=== PATIENT | male | born 1955 | race Caucasian/White ===

== ENCOUNTER 2016-11-07 07:53 | Day surgery (SDC) | payer OTHER ==
[~2016-11-07] VITALS: Ht 180.3 cm; Wt 126.3 kg
[2016-11-07] VITALS (21 sets, daily range): BP systolic 103–122; BP diastolic 60–85; PULSE 61–84; RESP 14–21; TEMP 96.3–96.9; O2SAT 94–98; Ht 180.3 cm; Wt 126.3 kg
[~2016-11-07 07:53] MED LIST: LISI-127 PO; METO25TA6 PO; RIVA20TA PO
--- OUTSIDE RECORDS SUMMARY | 2016-11-07 08:01 | XMS REPORT ---
Author Author AFTAB PARKINSON [facility] Address [address] [id number] Phone [phone] Summary purpose CCDA Sent to [facility] Chief Complaint and Reason for Visit No authorized Reason for Visit (Admitting Diagnosis) is available for this visit. Problem list No authorized problems tracked for continuity of care are available for this visit. Encounters No authorized problems tracked for encounter diagnoses are available for this visit. Medications No home medications recorded for this patient visit Allergies, adverse reactions, alerts No allergy information is available for this patient. Immunizations No immunizations recorded for this patient visit Relevant diagnostic tests and/or laboratory data RESULTS CBC - 5 part diff :57:00 Result Normal Range Units WBC 5.18 4.75-11.75 x 103/uL Neut % 51.7 40-70 % Lymph % 35.9 18-50 % Rankin % 10.6 2-12 % Eos % 1.4 0-6 % Baso % 0.4 0-2 % Neut # 2.68 1.8-8.1 K/uL Lymph # 1.86 0.7-5.8 K/uL Rankin # 0.55 0.1-1.4 K/uL Eos # 0.07 0.0-0.7 K/uL Baso # 0.02 0.0-0.2 K/uL RBC 5.47 4.5-6.2 x 106/uL HGB 16.5 13.5-18.8 g/dl HCT 48.3 40-54 % MCV 88.3 80-100 FL MCH 30.2 25-35 pg MCHC 34.2 31-37 g/dl RDW 13.6 12.5-15.5 % Platelet 160 140-450 x 103/uL MPV 9.7 8.0-13.0 [place] Reference Lab Group :57:00 Result Normal Range Units Vitamin D (25-Hydroxy) 31 30-74 The desirable level of 25-Hydroxy Vitamin D Total(D2 + D3) is 30-74 ng/mL. A level consistently >200 is potentially toxic. Vitamin D, 25-Hydroxy performed at [facility] Reference Lab, [address] [place] [address] Dry House Attendant Mariah Wilde DO Vitamin D2(25-Hydroxy) < 7 Vitamin D3(25-Hydroxy) 31 Vitamin B12 586 213-816 Vitamin B12 performed at [facility] Reference Lab, [address] [place] [address] Dry House Attendant Yenni Cantu MD Iron Total 122 65-175 Folate 16.2 7.0-31.4 Folate performed at [facility] Reference Lab, [address] [place] [address] Dry House Attendant Mariah Wilde DO TIBC 278 260-445 % Saturation 44 11-46 % UIBC 156 126-382 Iron Profile performed at [facility] Reference Lab, [address] [place] [address] Dry House Attendant Yenni Cantu MD PTH H 96.7 6.6-88.9 PTH (Parathyroid Hormone) performed at [facility] Reference Lab, [address] [place] [address] Dry House Attendant Yenni Cantu MD History of procedures Procedure Code Code Type Description Date Performed Performing Physician 83584 CPT-4 COMPLETE CBC W/AUTO DIFF WBC 07-01-2014 [facility] JESS 06179 CPT-4 COMPREHEN METABOLIC PANEL 07-01-2014 [facility] JESS 56897 CPT-4 VITAMIN B-12 07-01-2014 [facility] JESS 29003 CPT-4 ASSAY OF FOLIC ACID SERUM 07-01-2014 [facility] JESS 42565 CPT-4 IRON BINDING TEST 07-01-2014 [facility] JESS 78852 CPT-4 ASSAY OF IRON 07-01-2014 [facility] JESS 10433 CPT-4 VITAMIN D 25 HYDROXY 07-01-2014 [facility] JESS 78782 CPT-4 ASSAY OF PARATHORMONE 07-01-2014 [facility] JESS 96830 CPT-4 ROUTINE VENIPUNCTURE 07-01-2014 [facility] JESS Functional status No functional or cognitive status observations are available for this visit. Vital signs No authorized vital signs are available for this visit. Social history No Social History or smoking status observations were recorded for this visit. ( Unknown if ever smoked.) Treatment Plan No treatment plan text is available for this visit. Hospital discharge instructions No discharge instruction text is available for this visit.
--- OUTSIDE RECORDS SUMMARY | 2016-11-07 08:01 | XMS REPORT ---
Author Author AFTAB PARKINSON [facility] AFTAB PARKINSON [facility] Address [address] [facility] [address] [place] [id number] Phone [phone] Summary purpose CCDA Sent to [facility] Chief Complaint and Reason for Visit No [...] data RESULTS CBC - 5 part diff [id number]:57:00 Result Normal Range Units WBC 5.18 4.75-11.75 x 103/uL Neut % 51.7 40-70 % Lymph % 35.9 18-50 % [place] % 10.6 2-12 % Eos % 1.4 0-6 % Baso % 0.4 0-2 % Neut # 2.68 1.8-8.1 K/uL Lymph # 1.86 0.7-5.8 K/uL [place] # 0.55 0.1-1.4 K/uL Eos # 0.07 0.0-0.7 K/uL Baso # 0.02 0.0-0.2 K/uL RBC 5.47 4.5-6.2 x 106/uL HGB 16.5 13.5-18.8 g/dl HCT 48.3 40-54 % MCV 88.3 80-100 FL MCH 30.2 25-35 pg MCHC 34.2 31-37 g/dl RDW 13.6 12.5-15.5 % Platelet 160 140-450 x 103/uL MPV 9.7 8.0-13.0 FL History of procedures No procedures recorded for this patient visit. Functional status No functional or cognitive status [...]
--- OUTSIDE RECORDS SUMMARY | 2016-11-07 08:01 | XMS REPORT ---
Author [facility] Address [address] [place], [place] [address] Phone [phone] Summary purpose CCDA Sent to [facility] Chief Complaint and Reason for Visit No authorized Reason for Visit (Admitting Diagnosis) is available for this visit. Problem list No authorized problems tracked for continuity of care are available for this visit. Encounters No authorized problems tracked for encounter diagnoses are available for this visit. Medications No medications recorded for this patient visit Allergies, adverse reactions, alerts Allergen Category Ingredient Status Reaction Severity Onset No known allergies No known allergies No known allergies Active Immunizations Status Date Not Given Reason Product Series # Effectiveness / Reaction Electronics Technician Lot / Expiration Given 11-20-2015 DIPH,PERTUSS(ACELL),TET VAC/PF 1 SANOFI-PASTEUR [id number] / 09-22-2017 Relevant diagnostic tests and/or laboratory data No authorized results are available for this patient visit History of procedures Procedure Code Code Type Description Date Performed Performing Physician 45839 CPT-4 TDAP VACCINE >7 IM 11-20-2015 AIYANA POPE 27197 CPT-4 IMMUNIZATION ADMIN 11-20-2015 STEPHANIE ELIZABETH 37619 CPT-4 REPAIR SUPERFICIAL WOUND(S) 11-20-2015 STEPHANIE ELIZABETH 96977 CPT-4 EMERGENCY DEPT VISIT 11-20-2015 STEPHANIE ELIZABETH Functional status Cognitive Status Finding Observation Time Level of Consciousne Alert 85-83-970861:45 Oriented to Person Yes 23-65-710800:[address] Yes 14-45-974767:45 Oriented to Time Yes 74-83-395825:45 Vital signs Type Value Date Respirations 20 27-19-960172:13 Pulse 74 39-50-168124:13 O2 Saturation 98% 09-05-608677:13 Systolic Blood Press 122mm/HG 61-81-336811:13 Diastolic Blood Pres 67mm/HG 95-17-834388:13 Temperature (Fahr) 98.1Degrees 88-23-805899:13 Height 71in 48-99-578501:28 Weight 273.5LB :28 Social history Type Value Smoking Status NEVER SMOKER Treatment Plan No treatment plan text is available for this visit. Hospital discharge instructions No discharge instruction text is available for this visit.
--- OUTSIDE RECORDS SUMMARY | 2016-11-07 08:01 | XMS REPORT | Continuity of Care Document ---
Author Author [facility]. Organization [facility]. Address Unknown Phone Unavailable Allergies Active Description Code Type Severity Reaction Onset Reported/Identified Relationship to Patient Clinical Status Yes No known allergies [id number] NK N/A N/A 11/20/2015 Confirmed or Verified Medications Problems Date Dx Coded Attending Type Code Diagnosis Diagnosed By 10/20/2014 W 278.00 10/20/2014 A 296.40 10/20/2014 W 298.9 10/20/2014 W 427.31 10/20/2014 W 780.57 10/20/2014 W V10.83 10/20/2014 W V45.86 10/20/2014 W V62.4 10/20/2014 W V67.3 10/20/2014 W 278.00 10/20/2014 A 296.40 10/20/2014 W 298.9 10/20/2014 W 427.31 10/20/2014 W 780.57 10/20/2014 W V10.83 10/20/2014 W V45.86 10/20/2014 W V62.4 10/20/2014 W V67.3 10/20/2014 W 278.00 10/20/2014 A 296.40 10/20/2014 W 298.9 10/20/2014 W 427.31 10/20/2014 W 780.57 10/20/2014 W V10.83 10/20/2014 W V45.86 10/20/2014 W V62.4 10/20/2014 W V67.3 12/02/2014 W 278.00 12/02/2014 A 296.40 12/02/2014 W 298.9 12/02/2014 W 427.31 12/02/2014 W 780.57 12/02/2014 W V10.83 12/02/2014 W V45.86 12/02/2014 W V62.4 12/02/2014 W V67.3 12/02/2014 W 278.00 12/02/2014 A 296.40 12/02/2014 W 298.9 12/02/2014 W 427.31 12/02/2014 W 780.57 12/02/2014 W V10.83 12/02/2014 W V45.86 12/02/2014 W V62.4 12/02/2014 W V67.3 12/10/2014 Roxane NASSAR, [place] W 278.00 12/10/2014 Roxane MD, [place] A 296.40 12/10/2014 Roxane MD, [place] W 298.9 12/10/2014 Roxane MD, [place] W 427.31 12/10/2014 Roxane MD, [place] W 780.57 12/10/2014 Roxane MD, [place] W V10.83 12/10/2014 Roxane MD, [place] W V45.86 12/10/2014 Roxane MD, [place] W V62.4 12/10/2014 Roxane NASSAR, [place] W V67.3 12/12/2014 Roxane MD, [place] W 278.00 12/12/2014 Roxane MD, [place] A 296.40 12/12/2014 Roxane NASSAR, [place] W 298.9 12/12/2014 Roxane MD, [place] W 427.31 12/12/2014 Roxane MD, [place] W 780.57 12/12/2014 Roxane NASSAR, [place] W V10.83 12/12/2014 Roxane NASSAR, [place] W V45.86 12/12/2014 Roxane MD, [place] W V62.4 12/12/2014 Roxane NASSAR, [place] W V67.3 12/22/2014 Roxane NASSAR, [place] W 278.00 12/22/2014 Roxane MD, [place] A 296.40 12/22/2014 Roxane NASSAR, [place] W 298.9 12/22/2014 Roxane NASSAR, [place] W 427.31 12/22/2014 Roxane NASSAR, [place] W 780.57 12/22/2014 Roxane NASSAR, [place] W V10.83 12/22/2014 Roxane NASSAR, [place] W V45.86 12/22/2014 Roxane NASSAR, [place] W V62.4 12/22/2014 Roxane NASSAR, [place] W V67.3 12/23/2014 Roxane NASSAR, [place] W 278.00 12/23/2014 Roxane MD, [place] A 296.40 12/23/2014 Roxane NASSAR, [place] W 298.9 12/23/2014 Roxane NASSAR, [place] W 427.31 12/23/2014 Roxane NASSAR, [place] W 780.57 12/23/2014 Roxane NASSAR, [place] W V10.83 12/23/2014 Roxane NASSAR, [place] W V45.86 12/23/2014 Roxane NASSAR, [place] W V62.4 12/23/2014 Roxane NASSAR, [place] W V67.3 12/25/2014 Roxane NASSAR, [place] W 278.00 12/25/2014 Roxane NSASAR, [place] A 296.40 12/25/2014 Roxane NASSAR, [place] W 298.9 12/25/2014 Roxane NASSAR, [place] W 427.31 12/25/2014 Roxane NASSAR, [place] W 780.57 12/25/2014 Roxane NASSAR, [place] W V10.83 12/25/2014 Roxane NASSAR, [place] W V45.86 12/25/2014 Roxane NASSAR, [place] W V62.4 12/25/2014 Roxane NASSAR, [place] W V67.3 01/05/2015 Roxane NASSAR, [place] W 278.00 01/05/2015 Roxane NASSAR, [place] A 296.40 01/05/2015 Roxane NASSAR, [place] W 298.9 01/05/2015 Roxane NASSAR, [place] W 427.31 01/05/2015 Roxane MD, [place] W 780.57 01/05/2015 Roxane MD, [place] W V10.83 01/05/2015 Roxane MD, [place] W V45.86 01/05/2015 Roxane MD, [place] W V62.4 01/05/2015 Roxane MD, [place] W V67.3 01/06/2015 Roxane MD, [place] W 278.00 01/06/2015 Roxane MD, [place] A 296.40 01/06/2015 Roxane MD, [place] W 298.9 01/06/2015 Roxane MD, [place] W 427.31 01/06/2015 Roxane MD, [place] W 780.57 01/06/2015 Roxane MD, [place] W V10.83 01/06/2015 Roxane MD, [place] W V45.86 01/06/2015 Roxane MD, [place] W V62.4 01/06/2015 Roxane NASSAR, [place] W V67.3 01/08/2015 Roxane MD, [place] W 278.00 01/08/2015 Roxane MD, [place] A 296.40 01/08/2015 Roxane NASSAR, [place] W 298.9 01/08/2015 Roxane NASSAR, [place] W 427.31 01/08/2015 Roxane MD, [place] W 780.57 01/08/2015 Roxane MD, [place] W V10.83 01/08/2015 Roxane NASSAR, [place] W V45.86 01/08/2015 Roxane NASSAR, [place] W V62.4 01/08/2015 Roxane NASSAR, [place] W V67.3 01/19/2015 Roxane NASSAR, [place] W 278.00 01/19/2015 Roxane NASSAR, [place] A 296.40 01/19/2015 Roxane NASSAR, Clairet W 298.9 01/19/2015 Roxane NASSAR, Clare W 427.31 01/19/2015 Roxane NASSAR, Clare W 780.57 01/19/2015 Roxane NASSAR, [place] W V10.83 01/19/2015 Roxane NASSAR, Clare W V45.86 01/19/2015 Roxane NASSAR, Clare W V62.4 01/19/2015 Roxane NASSAR, Clare W V67.3 09/22/2016 KARISHMA TENORIO I48.2 CHRONIC ATRIAL FIBRILLATION 09/24/2016 KARISHMA TENORIO I48.2 CHRONIC ATRIAL FIBRILLATION 10/09/2016 KARISHMA TENORIO I48.2 CHRONIC ATRIAL FIBRILLATION Procedures Code [place] [address] RPR F/E/E/N/L/M 2.6-5.0 CM STEPHANIE ELIZABETH MD 11/20/2015 71460 IMMUNIZATION ADMIN STEPHANIE ELIZABETH MD 11/20/2015 96904 TDAP VACCINE 7 YRS/> AIYANA AVILA 11/20/2015 39012 EMERGENCY DEPT VISIT STEPHANIE ELIZABETH MD 11/20/2015 Results Test Result Range Comprehensive Metabolic Panel - 07/01/14 10:19 Sodium 141 MMOLL 135-145 Potassium 4.4 MMOLL 3.5-5.1 Chloride 106 MMOLL 98-107 CO2 31.4 MMOLL 21.0-32.0 Anion GAP 3.6 MMOLL 3.0-25.0 Glucose 87 MG/DL 74-106 BUN 18 MG/DL 7-18 Creatinine 0.69 MG/DL 0.2-1.3 EGFR > 60 MLMIN > 60 Calcium 9.1 MG/DL 8.4-10.1 T. Protein 6.5 G/DL 6.4-8.2 Albumin 3.6 G/DL 3.4-5.0 AST 22 U/L 15-37 Alk Phos 76 U/L 43-119 ALT 36 U/L 12-78 T Bili 0.9 MG/DL 0.00-1.00 COMPLETE BLOOD COUNT - 07/01/14 10:46 Baso # 0.02 K/ul 0.0-0.2 Baso % 0.4 % 0-2 Eos # 0.07 K/ul 0.0-0.7 Eos % 1.4 % 0-6 HCT 48.3 % 40-54 HGB 16.5 G/DL 13.5-18.8 Lymph # 1.86 K/ul 0.7-5.8 Lymph % 35.9 % 18-50 MCH 30.2 PG 25-35 MCHC 34.2 G/DL 31-37 MCV 88.3 FL 80-100 [place] # 0.55 K/ul 0.1-1.4 [place] % 10.6 % 2-12 MPV 9.7 FL 8.0-13.0 Platelet 160 10^3u 140-450 RBC 5.47 10^6u 4.5-6.2 RDW 13.6 % 12.5-15.5 Neut # 2.68 K/ul 1.8-8.1 Neut % 51.7 % 40-70 WBC 5.18 10^3u 4.75-11.75 Vitamin B12 - 07/03/14 07:32 Vitamin B12 586 pg/mL 213-816 Folic Acid (Folate) - 07/03/14 07:32 Folic Acid (Folate) 16.2 ng/mL 7.0-31.4 Iron/TIBC Profile - 07/03/14 07:32 Iron 122 ug/dL 65-175 % Saturation 44 % 11-46 Iron Binding Capacity 278 ug/dL 260-445 UIBC 156 ug/dl 126-382 PTH - 07/03/14 07:32 PTH 96.7 pg/mL 6.6-88.9 Vitamin D (25-Hydroxy) - 07/04/14 08:37 Vitamin D2 (25-Hydroxy) < 7 ng/mL Vitamin D3 (25-Hydroxy) 31 ng/mL Vitamin D (25-Hydroxy) 31 ng/mL 30-74 COMPLETE BLOOD COUNT (CBC) - 09/14/16 16:22 WHITE BLOOD COUNT 4.6 K/mm3 4.8-10.8 RED BLOOD COUNT 5.28 M/mm3 4.20-5.60 HEMOGLOBIN 15.3 g/dl 13.5-18.0 HEMATOCRIT 46.2 % 42.0-52.0 MEAN CORPUSCULAR VOLUME 88 fl 80.0-100.0 MEAN CORPUSCULAR HEMOGLOBIN 29 pg 27.0- 31.0 MEAN CORPUSCULAR HGB CONC 33 g/dl 33.0- 37.0 PLATELET COUNT 192 K/mm3 130-400 MEAN PLATELET VOLUME 10.5 fl 7.4-10.4 REDCELL DISTRIBUTION WIDTH-CV 12.5 % 11.5 -14.5 COMPREHENSIVE METABOLIC PANEL - 09/14/16 16:22 SODIUM 139 mmol/L 137-145 POTASSIUM 4.1 mmol/L 3.4-5.0 CHLORIDE 103 mmol/L 98-107 CARBON DIOXIDE 25 mmol/L 22-30 ANION GAP 11 mmol/L 7-16 BLOOD UREA NITROGEN 19 mg/dL 9-20 GLUCOSE 75 mg/dL 74-106 CALCIUM 9.4 mg/dL 8.4-10.2 BILIRUBIN,TOTAL 1.0 mg/dL 0.0-1.0 ALKALINE PHOSPHATASE 62 U/L 50-136 ASPARTATE AMINO TRANSFERASE 46 U/L 15-37 ALANINE AMINOTRANSFERASE 43 U/L 21-72 TOTAL PROTEIN 6.9 gm/dL 6.4-8.2 ALBUMIN 3.8 gm/dL 3.5-5.0 CREATININE, serum 0.67 mg/dL 0.66-1.25 ADJUSTED CALCIUM 9.6 mg/dL 8.4-10.2 eGFR 145 eGFR non 120 TROPONIN-I - 09/14/16 16:22 TROPONIN I < 0.012 ng/mL 0.000-0.034 CKMB-SO - 09/14/16 16:22 CKMB-SO 3.6 ng/mL 0.0-7.2 Encounters ACCT No. Visit Date/Time Discharge Status Pt. Type Provider Facility Loc./Unit Complaint [id number] 12/29/2014 15:16:00 2014 23:59:59 [facility] Outpatient Clare Betts MD [facility] [id number] 12/15/2014 17:20:00 2014 23:59:59 [facility] Outpatient Clare Betts MD [facility] [id number] 12/02/2014 16:02:00 2014 23:59:59 CH[facility]STIANO Outpatient Clare Betts MD [facility]. [facility] [id number] 09/14/2016 16:03:00 ACT Outpatient KARISHMA TENORIO [facility]. [facility] [id number] 12/17/2013 09:45:00 Document Registration [id number] 11/12/2013 09:34:00 Document Registration [id number] 10/08/2013 08:50:00 Document Registration
--- NOTE | 2016-11-07 08:07 | NUR ---
Admit Pt admitted at this time via ambulatory status. VS stable on RA. Call light w/in reach, side rails up X2, bed alarm on.
[2016-11-07] MEDS ORDERED: VITA400C19 PO (08:32)
[2016-11-07] MEDS ORDERED: LACT1CAP72 PO (08:32)
[2016-11-07] MEDS ORDERED: SUPER B PO (08:32)
[2016-11-07] MEDS ORDERED: UBID100C29 PO (08:32)
[2016-11-07 08:41] LABS: BASOPHILS % (AUTO) 0.4 % (0-2); EOSINOPHILS # (AUTO) 0.1 T/MM3 (0-0.5); EOSINOPHILS % (AUTO) 1.3 % (0-4); HCT - HEMATOCRIT 45.3 % (41-53); HGB - HEMOGLOBIN 15.6 GM/DL (13.5-17.5); IMMATURE GRANULOCYTE # (AUTO) 0.01 T/MM3 (0.00-0.03); IMMATURE GRANULOCYTE % (AUTO) 0.2 % (0.0-0.5); LYMPHOCYTES # (AUTO) 1.8 T/MM3 (1-4.8); LYMPHOCYTES % (AUTO) 33.6 % (23-45); MEAN CORPUSCULAR HGB 29.8 UUG (26-34); MEAN CORPUSCULAR HGB CONC(MCHC 34.4 GM/DL (31-37); MEAN CORPUSCULAR VOLUME 86.5 UM3 (80-100); MEAN PLATELET VOLUME 10.5 UM3 (9.4-12.4); MONOCYTES # (AUTO) 0.5 T/MM3 (0-0.8); MONOCYTES % (AUTO) 8.8 % (0-9.0); NEUTROPHILS % (AUTO) 55.7 % (33-66); RED BLOOD COUNT 5.24 M/MM3 (4.50-5.90); WBC - WHITE BLOOD COUNT 5.4 T/MM3 (4.5-11.0)
[2016-11-07 08:52] LABS: ALBUMIN/GLOBULIN RATIO 1.5 RATIO (1.1-2.2); ALKALINE PHOSPHATASE 57 U/L (38-126); ALT (SGPT) 41 U/L (21-72); ANION GAP 11 MEQ/L (5-15); AST (SGOT) 31 U/L (17-59); BUN/CREATININE RATIO 28 RATIO (6-26); CALCIUM 9.6 MG/DL (8.4-10.2); CHLORIDE 110 MEQ/L (98-107); CO2 - CARBON DIOXIDE 25 MEQ/L (22-30); CREATININE 0.6 MG/DL (0.8-1.5); GLOMERULAR FILTRATION RATE 136; GLUCOSE 102 MG/DL (75-110); MAGNESIUM 2.1 MG/DL (1.6-2.3); POTASSIUM 4.3 MEQ/L (3.6-5); SODIUM 146 MEQ/L (134-144); TOTAL PROTEIN 6.6 G/DL (6.3-8.2)
[2016-11-07 09:21] LABS: THYROID STIM HORMONE-TSH 1.39 MIU/L (0.47-4.68)
--- NOTE | 2016-11-07 10:09 | HPPDOC ---
SUELLEN SHABAZZ 11/07/16 1007: HPI - Adult Date DATE: 11/07/16 TIME: 09:59 General Date of Admission Date of Admission: November 07, 2016 at 07:53 Chief Complaint: palpitations History of Present Illness Jean is a 61 year old male who is well known to Dr. Velásquez with a history of paroxysmal Atrial fibrillation, systolic heart failure and mixed HLD who is being admitted to observation on the Surgical unit for DCCV under conscious sedation and antiarrhythmic therapy on Sotalol if successful. He will be monitored on telemetry overnight with repeat EKG in the morning. Past Medical History Past Medical History Metabolic: cancer (skin-nose&ear) Cardiac: A-fib Respiratory: other (TIERNEY) Musculoskeletal: osteoarthritis Psychological: bipolar Surgical History General: tonsils Joint: shoulder (rotator cuff) Current Medications Home Meds Active Scripts Amiodarone HCl (Pacerone) 200 Mg Tablet, 200 MG PO DAILY for 30 Days, #30 TAB 11 Refills Prov:SUELLEN SHABAZZ 11/08/16 Rivaroxaban (Xarelto) 20 Mg Tablet, 20 MG PO WS for 30 Days, #30 TAB 11 Refills Prov:SUELLEN SHABAZZ PRODUCTION MANAGER 11/08/16 Reported Medications Lactobacillus Combo No.11 (Probiotic) 1 Each Cap.sprink, 1 CAP PO DAILY 11/07/16 Vitamin E (Dl,Tocopheryl Acet) (Vitamin E) 400 Unit Capsule, 400 UNIT PO DAILY, CAP 11/07/16 Ubidecarenone (Co Q-10) 100 Mg Capsule, 1 CAP PO DAILY 11/07/16 [super b] No Conflict Check, 1 TAB PO DAILY 11/07/16 Discontinued Reported Medications Rivaroxaban (Xarelto) 20 Mg Tablet, 1 TAB PO DAILY, #30 TAB 11 Refills 11/06/16 Metoprolol Tartrate (Metoprolol Tartrate) 25 Mg Tablet, 0.5 TAB PO BID, #30 11/06/16 Allergies: Coded Allergies: NKDA (Verified Allergy, Unknown, 11/07/16) Family History FOUND: other (PPM-mother) Vaccines No Social History Smoking Status: Never smoker Does patient use chewing tobac: No Second Hand Exposure: No Substance Use Type: does not use Alcohol Intake: occasionally Marital Status: Single Current Occupational Status: employed Advance Directives: No DPOA for Healthcare Only Review of Systems Constitutional: DENIES: chills, dizziness, fever, weakness Eyes Vision: DENIES: vision changes ENMT Hearing: DENIES: tinnitus Balance: DENIES: vertigo Sinuses: NOT FOUND: rhinorrhea Mouth/Throat: DENIES: sore throat Cardiovascular DENIES: chest pain, dyspnea on exertion, murmur, orthopnea Rhythm/Rate: DENIES: irregular beat, palpitations Vascular: DENIES: pedal edema Pulmonary Respiratory: DENIES: cough, sputum GI Upper Abdomen: DENIES: nausea, vomiting Lower Abdomen: DENIES: diarrhea General: DENIES: dysuria Musculoskeletal General: DENIES: weakness Integumentary Skin: DENIES: rash, sores Neurological General: DENIES: headache, numbness, seizures, syncope, weakness Hematologic/Lymphatic easy bruising All Other Systems All Other Systems: Reviewed (remainder of 10-point ROS Neg.) Physical Exam General General Nourishment: well nourished, well developed, apparent age Vital Signs Vital Signs Date Time Temp Pulse Resp B/P Pulse Ox O2 Delivery O2 Flow Rate FiO2 11/07/16 08:39 67 16 11/07/16 08:34 96.9 122/77 98 Room Air Height (Feet): 5 Height (Inches): 11.00 Telemetry Rhythm: Atrial Fibrillation ENMT Brief: FOUND: mucosa moist Neck Brief: NOT FOUND: JVD, carotid bruits Respiratory Brief: FOUND: clear all perez, equal bilaterally, NOT FOUND: rales , wheezes Cardiovascular (brief) Cardiac Brief: NOT FOUND: click, gallop, murmur, regular rate, regular rhythm Abdomen (brief) Abdominal Brief: FOUND: BS normo active x4, soft, NOT FOUND: tender Integumentary (brief) Integumentary Brief: FOUND: dry, pink, warm Neurologic RN Documented GCS Eye Opening: Verbal: Motor: Total: Psychiatric (brief) FOUND: alert, attentive, oriented Laboratory Laboratory Tests Test 11/07/16 08:30 White Blood Count 5.4T/MM3 Red Blood Count 5.24M/MM3 Hemoglobin 15.6GM/DL Hematocrit 45.3% Mean Corpuscular Volume 86.5UM3 Mean Corpuscular Hemoglobin 29.8UUG Mean Corpuscular Hemoglobin Concent 34.4GM/DL RDW Standard Deviation 43.7FL Platelet Count 178T/MM3 Mean Platelet Volume 10.5UM3 Immature Granulocyte % (Auto) 0.2% Neutrophils (%) (Auto) 55.7% Lymphocytes (%) (Auto) 33.6% Monocytes (%) (Auto) 8.8% Eosinophils (%) (Auto) 1.3% Basophils (%) (Auto) 0.4% Absolute Immature Granulocyte (auto 0.01T/MM3 Absolute Neutrophils (auto) 3.0T/MM3 Absolute Lymphocytes (auto) 1.8T/MM3 Absolute Monocytes (auto) 0.5T/MM3 Absolute Eosinophils (auto) 0.1T/MM3 Absolute Basophils (auto) 0.0T/MM3 Turbidity < 20 Sodium Level 146MEQ/L Potassium Level 4.3MEQ/L Chloride Level 110MEQ/L Carbon Dioxide Level 25MEQ/L Anion Gap 11MEQ/L Blood Urea Nitrogen 17.0MG/DL Creatinine 0.6MG/DL Glomerular Filtration Rate Calc 136 BUN/Creatinine Ratio 28RATIO Glucose Level 102MG/DL Calculated Osmolality 283MOSM/KG Calcium Level 9.6MG/DL Magnesium Level 2.1MG/DL Total Bilirubin 1.30MG/DL Icterus Index < 2 Aspartate Amino Transf (AST/SGOT) 31U/L Alanine Aminotransferase (ALT/SGPT) 41U/L Alkaline Phosphatase 57U/L Total Protein 6.6G/DL Albumin 4.0G/DL Globulin 2.6G/DL Albumin/Globulin Ratio 1.5RATIO Thyroid Stimulating Hormone (TSH) 1.39MIU/L Chemistry Specimen Hemolysis 18 Laboratory Tests Test 11/07/16 08:30 White Blood Count 5.4T/MM3 Red Blood Count 5.24M/MM3 Hemoglobin 15.6GM/DL Hematocrit 45.3% Mean Corpuscular Volume 86.5UM3 Mean Corpuscular Hemoglobin 29.8UUG Mean Corpuscular Hemoglobin Concent 34.4GM/DL RDW Standard Deviation 43.7FL Platelet Count 178T/MM3 Mean Platelet Volume 10.5UM3 Immature Granulocyte % (Auto) 0.2% Neutrophils (%) (Auto) 55.7% Lymphocytes (%) (Auto) 33.6% Monocytes (%) (Auto) 8.8% Eosinophils (%) (Auto) 1.3% Basophils (%) (Auto) 0.4% Absolute Immature Granulocyte (auto 0.01T/MM3 Absolute Neutrophils (auto) 3.0T/MM3 Absolute Lymphocytes (auto) 1.8T/MM3 Absolute Monocytes (auto) 0.5T/MM3 Absolute Eosinophils (auto) 0.1T/MM3 Absolute Basophils (auto) 0.0T/MM3 Turbidity < 20 Sodium Level 146MEQ/L Potassium Level 4.3MEQ/L Chloride Level 110MEQ/L Carbon Dioxide Level 25MEQ/L Anion Gap 11MEQ/L Blood Urea Nitrogen 17.0MG/DL Creatinine 0.6MG/DL Glomerular Filtration Rate Calc 136 BUN/Creatinine Ratio 28RATIO Glucose Level 102MG/DL Calculated Osmolality 283MOSM/KG Calcium Level 9.6MG/DL Magnesium Level 2.1MG/DL Total Bilirubin 1.30MG/DL Icterus Index < 2 Aspartate Amino Transf (AST/SGOT) 31U/L Alanine Aminotransferase (ALT/SGPT) 41U/L Alkaline Phosphatase 57U/L Total Protein 6.6G/DL Albumin 4.0G/DL Globulin 2.6G/DL Albumin/Globulin Ratio 1.5RATIO Thyroid Stimulating Hormone (TSH) 1.39MIU/L Chemistry Specimen Hemolysis 18 EKG atrial fibrillation Assessment & Plan Problems: (1) Paroxysmal atrial fibrillation Status: Chronic Assessment & Plan: Admitted to observation on the Surgical unit for DCCV under conscious sedation and antiarrhythmic therapy on Sotalol if successful. (2) Mixed hyperlipidemia Status: Chronic Assessment & Plan: PCP manages Plan/Intensity of Service admitted to observation on the Surgical unit for DCCV under conscious sedation and antiarrhythmic therapy on Sotalol if successful. DVT Prophylaxis: Xarelto Code Status Full Code Hospital Course Summary Disclaimer The hospital course summary below is not to be considered part of the above Progress Note. AKISER PALMA MD 11/10/16 1548: Past Medical History Current Medications Home Meds Active Scripts Amiodarone HCl (Pacerone) 200 Mg Tablet, 200 MG PO DAILY for 30 Days, #30 TAB 11 Refills Prov:SUELLEN SHABAZZ APRN 11/08/16 Rivaroxaban (Xarelto) 20 Mg Tablet, 20 MG PO WS for 30 Days, #30 TAB 11 Refills Prov:SUELLEN SHABAZZ APRN 11/08/16 Reported Medications Lactobacillus Combo No.11 (Probiotic) 1 Each Cap.sprink, 1 CAP PO DAILY 5/16/17 Vitamin E (Dl,Tocopheryl Acet) (Vitamin E) 400 Unit Capsule, 400 UNIT PO DAILY, CAP 11/07/16 Ubidecarenone (Co Q-10) 100 Mg Capsule, 1 CAP PO DAILY 11/07/16 [super b] No Conflict Check, 1 TAB PO DAILY 11/07/16 Discontinued Reported Medications Rivaroxaban (Xarelto) 20 Mg Tablet, 1 TAB PO DAILY, #30 TAB 11 Refills 11/06/16 Metoprolol Tartrate (Metoprolol Tartrate) 25 Mg Tablet, 0.5 TAB PO BID, #30 11/06/16 Allergies: Coded Allergies: NKDA (Verified Allergy, Unknown, 11/07/16) Assessment & Plan Hospital Course Summary Hospital Course Summary After examining the patient I agree with the above assessment. I am involved in the formulation of the patient's plan of care. SUELLEN SHABAZZ APRN November 07, 2016 10:07 KAISER PALMA MD November 10, 2016 15:48
--- NOTE | 2016-11-07 11:32 | NUR ---
CM CM IN TO VISIT PATIENT, HE IS A&O. NO FAMILY PRESENT. PATIENT PLANS TO DISCHARGE HOME, DENIES DISCHARGE NEEDS. CM CONTACT INFORMATION PROVIDED. PATIENT ALSO REQUESTED DPOA AND LIVING WILL INFORMATION, THIS WAS GIVEN AND DISCUSSED. Addendum: 11/07/16 at 1133 by EMA BLUM RN Amended: Links added.
[2016-11-07] MEDS ORDERED: AMIODARONE 150 MG in NORMAL SALINE 100 ML IV ONE (14:00)
[2016-11-07] MEDS ORDERED: AMIODARONE 900 MG in NORMAL SALINE 500 ML IV SCH ×2 (14:00→20:00)
[2016-11-07] MEDS ORDERED: MIDAZOLAM 2mg/2ml INJECTION IV ONE (16:33)
[2016-11-07] MEDS ORDERED: FENTANYL 100mcg/2ml INJECTION IV ONE (16:33)
[2016-11-07] MEDS ORDERED: SALINE FLUSH 10ml SYRINGE IVF ONE (16:33)
[2016-11-07] MEDS ORDERED: RIVAROXABAN 20 MG PO SCH (17:30)
--- NOTE | 2016-11-07 18:45 | NUR ---
Summary VS stable on RA. Pt denies n/v and pain. Pt up with standby assistance. Side rails up X2, call light w/in reach, bed alarm on.
[2016-11-07] MEDS ORDERED: ACETAMINOPHEN 500 MG TABLET PO PRN (21:45)
[2016-11-08 04:05] VITALS: BP 130/87; PULSE 67; RESP 16; TEMP 96.1; O2SAT 97
--- NOTE | 2016-11-08 04:31 | NUR ---
SHIFT SUMMARY PT IS ALERT AND ORIENTED X3,VITAL SIGNS ARE STABLE ON ROOM AIR. DENIES C/P,N/V AND SOA. PT HAS STATED THAT HE HAS HAD A HEADACHE OFF AND ON THROUGH THE NIGHT. TYLENOL AND A COOL COMPRESS GIVEN. PT HAS HAD ADEQUATE URINE OUTPUT WITH A STRONG SMELL. PT HAS BEEN UP ADLIB IN HIS ROOM, CALLING FOR ASSISTANCE IF NECESSARY. WILL CONTINUE TO MONITOR.
[2016-11-08 04:57] LABS: ANION GAP 10 MEQ/L (5-15); BUN/CREATININE RATIO 27 RATIO (6-26); CALCIUM 9.5 MG/DL (8.4-10.2); CHLORIDE 106 MEQ/L (98-107); CO2 - CARBON DIOXIDE 27 MEQ/L (22-30); CREATININE 0.7 MG/DL (0.8-1.5); GLOMERULAR FILTRATION RATE 114; GLUCOSE 94 MG/DL (75-110); MAGNESIUM 2.1 MG/DL (1.6-2.3); POTASSIUM 4.4 MEQ/L (3.6-5); SODIUM 143 MEQ/L (134-144)
[2016-11-08 07:21] VITALS: PULSE 57
[2016-11-08 07:23] VITALS: BP 118/75; PULSE 56; RESP 18; TEMP 95.9; O2SAT 96
--- NOTE | 2016-11-08 07:39 | DC CARDIOF ---
DATE OF PROCEDURE November 07, 2016 The patient is a 61-year-old gentleman with atrial fibrillation on chronic anticoagulation and was referred for DC cardioversion. Informed consent was obtained after explaining the procedure and the potential risks to the patient who agreed to proceed with the procedure. PROCEDURE 1. DC cardioversion of atrial fibrillation to sinus rhythm. TECHNIQUE Conscious sedation was performed using Versed and fentanyl. Anterior and lateral Zoll pads were applied. 360 joules of energy was delivered in synchronized manner and patient converted from atrial fibrillation to sinus rhythm. However, after a minute in sinus rhythm he reverted back to atrial fibrillation. Repeat cardioversion was performed again at previous settings and the patient failed to convert to sinus this time. Again, repeat cardioversion was performed for the third time and patient converted from atrial fibrillation into sinus rhythm at the previous settings. He tolerated the procedure well with no complications. IMPRESSION 1. Successful DC cardioversion of atrial fibrillation to sinus rhythm. PLAN Will start him on antiarrhythmics to maintain sinus and keep him on anticoagulation. IDRIS
[2016-11-08] MEDS ORDERED: VITAMIN E 400 UNIT PO SCH (09:00)
[2016-11-08] MEDS ORDERED: COENZYME Q10 200 MG PO SCH (09:00)
[2016-11-08] MEDS ORDERED: RIVA20TA PO (11:14)
[2016-11-08] MEDS ORDERED: AMIO200T7 PO (11:14)
[2016-11-08] MEDS ORDERED: AMIODARONE 200 MG TABLET PO SCH (11:15)
[2016-11-08 12:29] VITALS: BP 138/69; PULSE 66; RESP 20; TEMP 96.8; O2SAT 96
--- NOTE | 2016-11-08 13:20 | NUR ---
DISCHARGE DISCHARGE INSTRUCTIONS EXPLAINED TO PATIENT. PACKET SENT WITH PATIENT. MEDS PROVIDED TO PATIENT. PT DENIED CP TODAY. PT DID NOT HAVE PAIN OR SOA. UP AD CHICHO. A&OX3. IVL DC'D. PT AMBULATED WITH STAFF TO THE FRONT ENTRANCE. SCRIPTS X2 PROVIDED TO PATIENT.
--- OUTSIDE RECORDS SUMMARY | 2016-11-09 10:22 | XMS REPORT | Continuity of Care Document ---
Author Author [facility] Organization [facility] Address Unknown Phone Unavailable Support Name Relationship Address Phone KAISER BARROS MD Caregiver [address] [place] [address] [place] [address] Unavailable KAISER BARROS MD Caregiver [address] [place] [address] [place] [address] Unavailable YESIKA BAILEY Caregiver [address] [place] [address] Unavailable AGUILA HWANG Next Of Kin [address] [place] [address] Insurance Providers Guarantor Gaviota Hwang Address [address] [facility] [address] [place] [address] Email [email or web address] Payer [employer] Policy Number [id number] Subscriber's Name HwangGaviota Andry Relationship 18 Self Group Number [id number] Advance Directives Directive Response Recorded Date/Time Ordered Resuscitation Status Full Code 11/07/16 6:45am Resuscitation Documents on File No 11/07/16 8:17am DPOA for Healthcare Only No 11/07/16 10:09am Living Will No 11/07/16 8:17am Advance Directive Consult Information Given 11/07/16 11:33am Problems Active Problems Medical Problem Onset Date Status Mixed hyperlipidemia Unknown Chronic Paroxysmal atrial fibrillation Unknown Chronic Medications Current Home Medications Medication Dose Units Route Directions Days Qty Instructions Start Date Amiodarone Hcl (Pacerone) 200 Mg Tablet 200 Mg Oral Daily 30 Days 30 Tablet 11/08/16 Lactobacillus Combo No.11 (Probiotic) 1 Each Cap.sprink 1 Cap Oral Daily 11/07/16 Rivaroxaban (Xarelto) 20 Mg Tablet 20 Mg Oral Give With Supper 30 Days 30 Tablet 11/08/16 Super B 1 Tab Oral Daily 11/07/16 Ubidecarenone (Co Q-10) 100 Mg Capsule 1 Cap Oral Daily 11/07/16 Vitamin E (Dl,Tocopheryl Acet) (Vitamin E) 400 Unit Capsule 400 Unit Oral Daily 11/07/16 Past Home Medications Medication Directions Ordered Status Metoprolol Tartrate 25 Mg Tablet, 0.5 Tab Oral Twice A Day 11/06/16 Discontinued Rivaroxaban (Xarelto) 20 Mg Tablet, 1 Tab Oral Daily 11/06/16 Discontinued Social History Social History Problem Response Recorded Date/Time Onset Date Status Reason for Hospitalization antiarrhythmic therapy 11/08/2016 11:31am Not Applicable Not Applicable Chewing Tobacco Status No 04/25/2013 9:57am Not Applicable Not Applicable Hx Substance Use No 11/06/2016 2:10pm Not Applicable Not Applicable Hx Alcohol Use N VERY RARELY 11/06/2016 2:10pm Not Applicable Not Applicable Has the pt used tobacco in the last 12 months Yes 11/07/2016 8:19am Not Applicable Not Applicable Query Response Start Date Stop Date Smoking Status Never smoker Hospital Discharge Instructions Instructions: Care Instructions: I was in the hospital because (patient own words): "I have a heart arrhythmia and Dr. Barros wants to do a cardioversion" Discharge Diet: Resume heart healthy diet Discharge Activity: May resume usual activity as tolerated. Follow Up Appointments: Follow up with Dr. Barros on: 11/17/16 at 10:40 Pending Lab / Results: No Pending Lab Patient Instructions: New prescriptions:Amiodarone 200mg by mouth daily. Xarelto 20mg by mouth daily. DO NOT STOP THESE MEDICATIONS WITHOUT AN ORDER FROM DR. BARROS Expected Signs/Symptoms: N/A Notify Physician If: Chest pain or difficulty breathing. During Business Hours:: Call Dr. Barros's office at [phone]. After Business Hours:: Please call [phone] and have the featheredge machine operator page the physician. Pain Management/Treatment: N/A Wound/Incision Care: N/A Condition at time of discharge: Good Plan of Care Discharge Date 11/08/16 1:20pm Disposition 01 DISCHARGED HOME, SELF-CARE Instructions/Education Provided Cardioversion (DC) Prescriptions See Medication Section Care Plan and Goals See Discharge Instructions Section Functional Status Query Response Date Recorded Mobility Status Ambulatory November 07, 2016 8:35am Assistive Devices None November 07, 2016 8:35am Activity Limitations None November 07, 2016 8:35am Feeding Ability Independent November 07, 2016 8:35am Toileting Ability Independent November 07, 2016 8:35am Grooming Ability Independent November 07, 2016 8:35am Dressing Ability Independent November 07, 2016 8:35am Driving Ability Independent November 07, 2016 8:35am Housework Ability Independent November 07, 2016 8:35am Meal Preparation Ability Independent November 07, 2016 8:35am Stair Climbing Ability Independent November 07, 2016 8:35am Ability to complete ADL's impeded by No change November 07, 2016 8:35am Cognitive/Perceptual Impairments Impaired vision Impaired hearing November 07, 2016 8:35am Visual Assistive Devices Glasses With patient November 07, 2016 8:35am Hearing Assistive Devices With patient November 07, 2016 8:35am Allergies, Adverse Reactions, Alerts Allergen Type Severity Reaction Status Last Updated NKDA Allergy Unknown Active 11/07/16 Immunizations Query Response on File Recorded Date/Time Hx Influenza Vaccination No 11/07/16 8:19am Hx Pneumococcal Vaccination No 11/07/16 8:19am Hx Influenza Vaccination No 11/07/16 8:19am Vital Signs Acute Vital Signs Vital Response Date/Time Temperature (Fahrenheit) 96.8 deg F (96.8 - 99.1) 11/08/2016 12:29pm Temperature (Calculated Celsius) 36.98333 degrees C (36.0 - 37.3) 11/08/2016 12:29pm Temperature Source Oral 11/08/2016 12:29pm Pulse Rate (adult) 66 bpm (60 - 100) 11/08/2016 12:29pm Respiratory Rate 20 breaths/min (10 - 20) 11/08/2016 12:29pm O2 Sat by Pulse Oximetry 96 % (90 - 100) 11/08/2016 12:29pm Oxygen Delivery Method Room Air 11/08/2016 12:29pm Oxygen Delivery Method Room Air 11/07/2016 8:34am Oxygen Flow Rate 4.00 L/min 11/07/2016 10:00pm Blood Pressure 138/69 mm Hg 11/08/2016 12:29pm Blood Pressure Source Automatic Cuff 11/08/2016 12:29pm Height (Feet) 5 feet 11/07/2016 10:09am Height (Inches) 11.00 inches 11/07/2016 10:09am Weight (Kilograms) 126.300 kg 11/07/2016 8:16am Body Mass Index (BMI) 38.8 11/07/2016 8:16am Results Laboratory Results Test Name Result Units Flags Reference Collection Date/Time Result Date/ Time Comments White Blood Count 5.4 T/MM3 4.5-11.0 11/07/2016 8:3011/07/2016 8: 41am Red Blood Count 5.24 M/MM3 4.50-5.90 11/07/2016 8:3011/07/2016 8: 41am Hemoglobin 15.6 GM/DL 13.5-17.5 11/07/2016 8:3011/07/2016 8:41am Hematocrit 45.3 % 41-53 11/07/2016 8:3011/07/2016 8:41am Mean Corpuscular Volume 86.5 UM3 80-100 11/07/2016 8:3011/07/2016 8: 41am Mean Corpuscular Hemoglobin 29.8 UUG 26-34 11/07/2016 8:302016 8:41am Mean Corpuscular Hemoglobin Concent 34.4 GM/DL 31-37 11/07/2016 8:3011/07/2016 8:41am RDW Standard Deviation 43.7 FL 36.9-50.2 11/07/2016 8:3011/07/2016 8 :41am Platelet Count 178 T/MM3 130-400 11/07/2016 8:3011/07/2016 8:41am Mean Platelet Volume 10.5 UM3 9.4-12.4 11/07/2016 8:3011/07/2016 8: 41am Neutrophils (%) (Auto) 55.7 % 33-66 11/07/2016 8:3011/07/2016 8: 41am Lymphocytes (%) (Auto) 33.6 % 23-45 11/07/2016 8:3011/07/2016 8: 41am Monocytes (%) (Auto) 8.8 % 0-9.0 11/07/2016 8:3011/07/2016 8:41am Eosinophils (%) (Auto) 1.3 % 0-4 11/07/2016 8:3011/07/2016 8:41am Basophils (%) (Auto) 0.4 % 0-2 11/07/2016 8:3011/07/2016 8:41am Immature Granulocyte % (Auto) 0.2 % 0.0-0.5 11/07/2016 8:302016 8:41am Absolute Neutrophils (auto) 3.0 T/MM3 1.8-7.7 11/07/2016 8:302016 8:41am Absolute Lymphocytes (auto) 1.8 T/MM3 1-4.8 11/07/2016 8:302016 8:41am Absolute Monocytes (auto) 0.5 T/MM3 0-0.8 11/07/2016 8:3011/07/2016 8:41am Absolute Eosinophils (auto) 0.1 T/MM3 0-0.5 11/07/2016 8:302016 8:41am Absolute Basophils (auto) 0.0 T/MM3 0-0.2 11/07/2016 8:3011/07/2016 8:41am Absolute Immature Granulocyte (auto 0.01 T/MM3 0.00-0.03 11/07/2016 8: 3011/07/2016 8:41am Icterus Index < 2 0-7 11/08/2016 4:11/08/2016 4:57am Chemistry Specimen Hemolysis < 15 0-25 11/08/2016 4:11/08/2016 4 :57am 0-25: Specimen Exhibited No Hemolysis. Turbidity < 20 0-20 11/08/2016 4:11/08/2016 4:57am Sodium Level 143 MEQ/L 134-144 11/08/2016 4:11/08/2016 4:57am Potassium Level 4.4 MEQ/L 3.6-5 11/08/2016 4:11/08/2016 4:57am Chloride Level 106 MEQ/L 98-107 11/08/2016 4:11/08/2016 4:57am Carbon Dioxide Level 27 MEQ/L 22-11/08/2016 4:11/08/2016 4: 57am Anion Gap 10 MEQ/L 5-15 11/08/2016 4:11/08/2016 4:57am Blood Urea Nitrogen 19.0 MG/DL 9-11/08/2016 4:11/08/2016 4: 57am Creatinine 0.7 MG/DL L 0.8-1.5 11/08/2016 4:11/08/2016 4:57am BUN/Creatinine Ratio 27 RATIO H 6-26 11/08/2016 4:11/08/2016 4: 57am Glomerular Filtration Rate Calc 114 11/08/2016 4:11/08/2016 4: 57am Glucose Level 94 MG/DL 75-110 11/08/2016 4:11/08/2016 4:57am Calculated Osmolality 277 MOSM/KG 261-280 11/08/2016 4:11/08/2016 4:57am Calcium Level 9.5 MG/DL 8.4-10.2 11/08/2016 4:11/08/2016 4:57am Total Bilirubin 1.30 MG/DL 0.20-1.30 11/07/2016 8:11/07/2016 8: 52am Alkaline Phosphatase 57 U/L 38-126 11/07/2016 8:11/07/2016 8:52am Total Protein 6.6 G/DL 6.3-8.2 11/07/2016 8:11/07/2016 8:52am Albumin 4.0 G/DL 3.5-5.0 11/07/2016 8:11/07/2016 8:52am Globulin 2.6 G/DL 2.4-3.6 11/07/2016 8:11/07/2016 8:52am Albumin/Globulin Ratio 1.5 RATIO 1.1-2.2 11/07/2016 8:11/07/2016 8 :52am Aspartate Amino Transf (AST/SGOT) 31 U/L 17-59 11/07/2016 8:2016 8:52am Alanine Aminotransferase (ALT/SGPT) 41 U/L 21-72 11/07/2016 8: 8:52am Magnesium Level 2.1 MG/DL 1.6-2.3 11/08/2016 4:11/08/2016 4:57am Free Thyroxine 1.03 NG/DL 0.78-2.19 11/07/2016 8:11/08/2016 1: 34am Thyroid Stimulating Hormone (TSH) 1.39 MIU/L 0.47-4.68 11/07/2016 8: 30am 11/07/2016 9:21am Procedures No known history of procedures. Encounters Encounter Location Arrival/Admit Date Discharge/Depart Date Attending Provider Discharged Inpatient (obs) [facility] 11/07/16 7:53am 11/08/16 1: 20pm KAISER BARROS MD
--- OUTSIDE RECORDS SUMMARY | 2016-11-09 10:22 | XMS REPORT | Continuity of Care Document ---
Author Author [facility] [employer]. Organization [facility]. Address Unknown Phone Unavailable Allergies Active Description Code Type Severity Reaction Onset Reported/Identified Relationship to Patient Clinical Status Yes No known allergies [id number] NK N/A N/A 11/20/2015 Confirmed or Verified [...] Roxane NASSAR, Aveekshit W V45.86 12/22/2014 Roxane NASSRA, Aveekshit W V62.4 12/22/2014 Roxane NASSAR, Aveekshit [...] Roxane NASSAR, Aveekshit W 278.00 12/25/2014 Roxane NASSAR, Aveekshit A 296.40 12/25/2014 Roxane NASSAR, Aveekshit [...] 01/08/2015 Roxane NASSAR, Aveekshit W 298.9 01/08/2015 Roxnae NASSAR, Aveekshit W 427.31 01/08/2015 Roxane MD, [...] Procedures Code Description [place] [address] RPR F/E/E/N/L/M 2.6-5.0 CM STEPHANIE ELIZABETH MD 11/20/2015 89140 IMMUNIZATION ADMIN STEPHANIE ELIZABETH MD 11/20/2015 63916 TDAP VACCINE 7 YRS/> AIYANA AVILA 11/20/2015 61474 EMERGENCY DEPT VISIT STEPHANIE ELIZABETH MD 11/20/2015 [...] 34.2 G/DL 31-37 MCV 88.3 FL 80-100 [place] # 0.55 K/ul 0.1-1.4 [place] % 10.6 % 2-12 MPV 9.7 FL [...] Status Pt. Type Provider Facility Loc./Unit Complaint [id number] 12/29/2014 15:16:00 2014 23:59:59 CHRISTIANO Outpatient Clare Betts MD [facility] [id number] 12/15/2014 17:20:00 2014 23:59:59 CHRISTIANO Outpatient Clare Betts MD [facility] [id number] 12/02/2014 16:02:00 2014 23:59:59 CHRISTIANO Outpatient Clare Betts MD [facility]. [facility] [id number] 09/14/2016 16:03:00 ACT Outpatient KARISHMA TENORIO [facility]. COL.LAB LAB [id number] 12/17/2013 09:45:00 Document Registration [id number] 11/12/2013 09:34:00 Document Registration [id number] 10/08/2013 08:50:00 Document Registration
--- OUTSIDE RECORDS SUMMARY | 2016-11-09 10:23 | XMS REPORT | Continuity of Care Document ---
Author Author [facility] Organization [facility] Address Unknown Phone Unavailable Support Name Relationship Address Phone KAISER BARROS MD Caregiver [address] [place] [address] [place] [address] Unavailable KAISER BARROS MD Caregiver [address] [place] [address] [place] [address] Unavailable YESIKA BAILEY Caregiver [address] [place] [address] Unavailable AGUILA HWANG Next Of Kin 1968 [address] [place] [address] Insurance Providers Guarantor Gaviota Hwang Address [address] [facility] [address] [place] [id number] Email Payer [employer] Policy Number [id number] Subscriber's Name HwangGaviota hernandez Andyr Relationship 18 Self Group Number [id number] Advance Directives Directive Response Recorded Date/Time Ordered [...] Business Hours:: Call Dr. Barros's office at [phone]. After Business Hours:: Please call [phone] and have the set up operator tool page the physician. Pain Management/Treatment: N/A Wound/Incision Care: N/A Condition at time of discharge: Good Plan of Care Discharge Date 11/08/16 1:20pm Instructions/Education Provided Cardioversion (DC) Prescriptions See Medication Section Functional Status Query Response Date Recorded [...] - 99.1) 11/08/2016 12:29pm Temperature (Calculated Celsius) 36.14553 degrees C (36.0 - 37.3) 11/08/2016 12:29pm [...] Red Blood Count 5.24 M/MM3 4.50-5.90 11/07/2016 8:11/07/2016 8: 41am Hemoglobin 15.6 GM/DL 13.5-17.5 11/07/2016 8:11/07/2016 8:41am Hematocrit 45.3 % 41-53 11/07/2016 8:11/07/2016 8:41am Mean Corpuscular Volume 86.5 UM3 80-100 11/07/2016 8:11/07/2016 8: 41am Mean Corpuscular Hemoglobin 29.8 UUG 26-34 11/07/2016 8:2016 8:41am Mean Corpuscular Hemoglobin Concent 34.4 GM/DL 31-37 11/07/2016 8:11/07/2016 8:41am RDW Standard Deviation 43.7 FL 36.9-50.2 11/07/2016 8:11/07/2016 8 :41am Platelet Count 178 T/MM3 130-400 11/07/2016 8:11/07/2016 8:41am Mean Platelet Volume 10.5 UM3 9.4-12.4 11/07/2016 8:11/07/2016 8: 41am Neutrophils (%) (Auto) 55.7 % 33-66 11/07/2016 8:11/07/2016 8: 41am Lymphocytes (%) (Auto) 33.6 % 23-45 11/07/2016 8:11/07/2016 8: 41am Monocytes (%) (Auto) 8.8 % 0-9.0 11/07/2016 8:11/07/2016 8:41am Eosinophils (%) (Auto) 1.3 % 0-4 11/07/2016 8:11/07/2016 8:41am Basophils (%) (Auto) 0.4 % 0-2 11/07/2016 8:11/07/2016 8:41am Immature Granulocyte % (Auto) 0.2 % 0.0-0.5 11/07/2016 8:302016 8:41am Absolute Neutrophils (auto) 3.0 T/MM3 1.8-7.7 11/07/2016 8:302016 8:41am Absolute Lymphocytes (auto) 1.8 T/MM3 1-4.8 11/07/2016 8:302016 8:41am Absolute Monocytes (auto) 0.5 T/MM3 0-0.8 11/07/2016 8:3011/07/2016 8:41am Absolute Eosinophils (auto) 0.1 T/MM3 0-0.5 11/07/2016 8:30am 2016 8:41am Absolute Basophils (auto) 0.0 T/MM3 0-0.2 [...] 4:11/08/2016 4:57am Carbon Dioxide Level 27 MEQ/L 22-30 11/08/2016 4:11/08/2016 4: 57am Anion Gap 10 MEQ/L 5-15 11/08/2016 4:11/08/2016 4:57am Blood Urea Nitrogen 19.0 MG/DL 9-20 11/08/2016 4:11/08/2016 4: 57am Creatinine 0.7 MG/DL L [...] Location Arrival/Admit Date Discharge/Depart Date Attending Provider Departed [facility] 11/07/16 7:53am 11/08/16 1: 20pm AKISER BARROS MD
== END 2016-11-08 13:20 | disposition home or self-care (01) ==
LOC: SCU 07:53 → SRG 07:53 → UNDOADMOB 07:53 → SCU 11-08 13:20 → UNDODISOB 11-08 13:20 → EDSTATUS 11-09 08:00
PROVIDERS: ATTEND Internal Medicine Cardiovascular Disease
DX: I48.0 Paroxysmal atrial fibrillation (principal); E78.2 Mixed hyperlipidemia; G47.33 Obstructive sleep apnea (adult) (pediatric); I50.21 Acute systolic (congestive) heart failure; F31.9 Bipolar disorder, unspecified; Z79.01 Long term (current) use of anticoagulants; Z79.82 Long term (current) use of aspirin; Z79.899 Other long term (current) drug therapy; Z85.828 Personal history of other malignant neoplasm of skin
CPT/HCPCS: 36415; 80048; 80053; 83735; 84439; 84443; 85025; 92960; 93005; 94770; 96365; 96366; 96375; 99218; J0282; J2250; J3010; J7050